=== PATIENT | female | born 1955 | race Caucasian/White ===

== ENCOUNTER → 2022-02-09 | Outpatient (CLI) | payer MEDICARE ==
--- NOTE | 2022-02-09 10:05 | Diagnostic Imaging Report ---
INDICATION: Right foot pain. AP, oblique and lateral views of the right foot are obtained. FINDINGS: No acute fracture or malalignment is identified. There is advanced narrowing of the 1st metatarsal-phalangeal joint with subchondral sclerosis and cyst formation. There is also mild juxta-articular erosion or subchondral cyst formation along the distal aspect of 5th metatarsal. Mild degenerative findings are also present at the medial navicular cuneiform joint. There is no lytic or sclerotic lesion. IMPRESSION: Degenerative-type findings are seen throughout the midfoot and forefoot. Findings are most pronounced at the 1st metatarsophalangeal joint. Dictated by: Dictated on workstation # [id number]
--- NOTE | 2022-02-09 13:09 | Diagnostic Imaging Report ---
INDICATION: No known injury. Shoulder pain EXAMINATION: Left shoulder 02/09/2022 FINDINGS: 3 views of the shoulder. There is narrowing and spurring at the acromioclavicular joint. Adjacent loose body suspected. These appear well corticated. There are no acute fractures or dislocations. The visualized lungs clear. IMPRESSION: 1. Chronic findings with no acute osseous abnormality. Dictated by: Dictated on workstation # [id number]
== END ==
LOC: ORTHO 09:43
PROVIDERS: ATTEND Orthopaedic Surgery
DX: M19.071 Primary osteoarthritis, right ankle and foot (principal); M25.512 Pain in left shoulder
CPT/HCPCS: 20610; 73030; 73630; G0463

== ENCOUNTER 2022-08-19 05:34 | Outpatient (CLI) | payer MEDICARE ==
[~2022-08-19] VITALS: Ht 154.9 cm; Wt 63.3 kg
[2022-08-19] MEDS ORDERED: PANT40TA52 PO (13:58)
[2022-08-19] MEDS ORDERED: ESTR-19 PO (13:58)
[2022-08-19] MEDS ORDERED: CHLO25TA22 PO (13:58)
[2022-08-19] MEDS ORDERED: POTA-177 PO (13:58)
[2022-08-19] MEDS ORDERED: ATEN50TA PO (13:58)
[2022-08-19] MEDS ORDERED: ESTR42.511 VG (13:58)
[2022-08-19] MEDS ORDERED: MONT-40 PO (13:58)
== END 2022-08-19 14:05 | disposition home or self-care (01) ==
LOC: PREOP 05:34
PROVIDERS: ATTEND Obstetrics & Gynecology
DX: Z01.818 Encounter for other preprocedural examination (principal)

== ENCOUNTER 2022-08-27 09:50 | Day surgery (SDC) | payer MEDICARE ==
[2022-08-27] VITALS (12 sets, daily range): BP systolic 113–149; BP diastolic 54–75
[~2022-08-27] VITALS: Ht 154.9 cm; Wt 63.3 kg
[~2022-08-27 09:50] MED LIST: ATEN50TA PO; CHLO25TA22 PO; ESTR-19 PO; ESTR42.511 VG; MONT-40 PO; PANT40TA52 PO; POTA-177 PO
--- NOTE | 2022-08-27 09:57 | Progress Note-Pre Operative ---
Pre-Operative Progress Note Date of Available H&P: Aug 27, 2022 Date H&P Reviewed: Aug 27, 2022 Time H&P Reviewed: 10:00 History & Physical: H&P Reviewed, No changes noted Pre-Operative Diagnosis: Vaginal prolapse and stress urinary incontinence WILLIAMS SEE MD Aug 27, 2022 09:57
--- NOTE | 2022-08-27 09:58 | Progress Note-Post Operative ---
Post-Operative Progess Note Surgeon (s)/Hospitality Host (s) Surgeon WILLIAMS SEE MD Hospitality Host: Heather Pre-Operative Diagnosis Vaginal prolapse and stress urinary incontinence Post-Operative Diagnosis Same Procedure & Operative Findings Date of Procedure 08/27/22 Procedure Performed/Findings Anterior and posterior vaginal repairs with enterocele repair Dr. Salcido did a pubovaginal sling and cystoscopy Anesthesia Type General Estimated Blood Loss Estimated blood loss (mL): min Specimens/Packing Specimens Removed None Packing: Kerlix gauze in the vagina WILLIAMS SEE MD Aug 27, 2022 09:58
[2022-08-27] MEDS ORDERED: ONDANSETRON 4 MG/2 ML (SDV) Z0FRAN IVP PRN ×2 (10:00→13:00)
[2022-08-27] MEDS ORDERED: ESTROGENS CONJ INJECTION 25 MG in WATER (STERILE) FOR INJECTION 5 ML IV ONE (10:00)
[2022-08-27] MEDS ORDERED: BENZOCAINE/MENTHOL (DERMOPLAST) 56 ML CAN TP PRN (10:00)
[2022-08-27] MEDS ORDERED: MEPERIDINE (DEMEROL) INJ 50 MG/ML IVP PRN (10:00)
[2022-08-27] MEDS ORDERED: PROMETHAZINE INJ 25 MG/ML (PHENERGAN) AMP IM PRN (10:00)
[2022-08-27] MEDS ORDERED: IBUP-1773 PO (10:02)
[2022-08-27] MEDS ORDERED: OXYC-199 PO (10:02)
[2022-08-27] MEDS ORDERED: DOCU-143 PO (10:02)
--- NOTE | 2022-08-27 10:12 | Discharge Inst-Surgical ---
Discharge Inst-Surgical Depart Medication/Instructions New, Converted or Re-Newed RX: Transmitted to Pharmacy Consults/Follow Up Patient Instructions: As directed Orders & Referrals Follow Up Appt: Call to make follow up appt. for patient in 4 weeks. Activity: Rest for 24 hours, than as tolerated. Prescriptions have been transmitted electronically to patient's pharmacy for Percocet Motrin and Colace Patient is to continue all of her home medications Diet: As tolerated- shower or tub bathe as desired. No driving for 24 hours, no alcoholic beverages for 24 hours, and nothing per vagina (no tampons, douching, or intercourse) for 4 weeks. Patient to return to the clinic as soon as possible for: Temperature greater than 101F, Severe Pain, Foul discharge from incision or vagina, Excessive Bleeding (more than a period). Activity Activity as Tolerated: No Diet Discharge Diet: No Restrictions WILLIAMS SEE MD Aug 27, 2022 10:12
[2022-08-27] MEDS ORDERED: ceFAZolin INJECTION 1,000 MG ONE (10:22)
[2022-08-27] MEDS ORDERED: NS (IVPB) 50 ML ONE (10:23)
[2022-08-27] MEDS ORDERED: LACTATED RINGERS 1,000 ML IV PRN (10:30)
[2022-08-27] MEDS ORDERED: ceFAZolin INJECTION 1,000 MG in NS (IVPB) 50 ML IV ONE (10:30)
[2022-08-27 10:31] LABS: BASOPHILS # (AUTO) 0.1 10^3/uL (0.0-0.1); BASOPHILS % (AUTO) 1 % (0-10); EOSINOPHILS # (AUTO) 0.1 10^3/uL (0.0-0.3); EOSINOPHILS % (AUTO) 1 % (0-10); HEMATOCRIT 41 % (35-52); HEMOGLOBIN 14.6 g/dL (11.5-16.0); LYMPHOCYTES # (AUTO) 1.2 10^3/uL (1.0-4.0); LYMPHOCYTES % (AUTO) 15 % (12-44); MEAN CORPUSCULAR HEMOGLOBIN 32 pg (25-34); MEAN CORPUSCULAR HGB CONC 36 g/dL (32-36); MEAN CORPUSCULAR VOLUME 90 fL (80-99); MEAN PLATELET VOLUME 8.9 fL (9.0-12.2); MONOCYTES # (AUTO) 0.9 10^3/uL (0.0-1.0); MONOCYTES % (AUTO) 11 % (0-12); NEUTROPHILS # (AUTO) 5.5 10^3/uL (1.8-7.8); NEUTROPHILS % (AUTO) 72 % (42-75); PLATELET COUNT 391 10^3/uL (130-400); WHITE BLOOD COUNT 7.7 10^3/uL (4.3-11.0)
[2022-08-27] MEDS ORDERED: fentaNYL INJ 100 MCG/2 ML AMP ONE (10:31)
[2022-08-27] MEDS ORDERED: MIDAZOLAM 2 MG/2 ML (VERSED) VIAL ONE (10:31)
[2022-08-27] MEDS ORDERED: ESTRADIOL VAGINAL CREAM 42.5 GM (ESTRACE) VG ONE (11:21)
[2022-08-27] MEDS ORDERED: proPOfol 200 MG/20 ML (DIPRIVAN) VIAL IV ONE (12:02)
[2022-08-27] MEDS ORDERED: LIDOCAINE PF 2% 5 ML (XYLOCAINE) VIAL ONE (12:03)
[2022-08-27] MEDS ORDERED: ONDANSETRON 4 MG/2 ML (SDV) Z0FRAN ONE (12:03)
--- NOTE | 2022-08-27 12:25 | Progress Note-Post Operative ---
Post-Operative Progess Note Surgeon (s)/Linen Sorter (s) Surgeon FREDRICK EMERSON MD Linen Sorter: MD ESA Pre-Operative Diagnosis Vaginal prolapse and stress urinary incontinence Post-Operative Diagnosis SAME Procedure & Operative Findings Date of Procedure 08/27/22 Procedure Performed/Findings PVS AND CYSTO Anesthesia Type GENERAL Estimated Blood Loss Estimated blood loss (mL): NEGLIGIBLE Specimens/Packing Specimens Removed NONE Packing: Kerlix gauze in the vagina FREDRICK EMERSON MD Aug 27, 2022 12:25
[2022-08-27] MEDS ORDERED: WATER (STERILE) FOR INJECTION 10 ML ONE (12:47)
[2022-08-27] MEDS ORDERED: SEVOFLURANE (ULTANE) 15 ML INHAL SOLN ONE (12:47)
[2022-08-27] MEDS ORDERED: ESTROGENS CONJ INJECTION 5 ML ONE (12:47)
--- NOTE | 2022-08-27 12:57 | Anesthesia-General Post-Op ---
General Patient Condition Mental Status/LOC: Same as Preop Cardiovascular: Satisfactory Nausea/Vomiting: Absent Respiratory: Satisfactory Pain: Controlled Complications: Absent Post Op Complications Complications None Follow Up Care/Instructions Patient Instructions None needed. Anesthesia/Patient Condition Patient Condition Patient is doing well, no complaints, stable vital signs, no apparent adverse anesthesia problems. No complications reported per nursing. HETAL MARTINEZ CRNA Aug 27, 2022 12:57
[2022-08-27] MEDS ORDERED: fentaNYL INJ 100 MCG/2 ML AMP IVP ONE (13:00)
[2022-08-27] MEDS ORDERED: PROMETHAZINE INJ 25 MG/ML (PHENERGAN) AMP IVP ONE (13:00)
[2022-08-27] MEDS ORDERED: HYDROmorphone 2 MG/ML VIAL (DILAUDID) IV ONE (13:00)
[2022-08-27] MEDS ORDERED: morphine INJ 10 MG/ML 1ML (SYR OR VIAL) IVP ONE (13:00)
[2022-08-27] MEDS ORDERED: HYDROmorphone 2 MG/ML VIAL (DILAUDID) ONE (13:13)
[2022-08-27] MEDS: D5 LR IV SOLUTION 1,000 ML IV SCH ×2 (14:48→21:33)
[2022-08-27] MEDS: KETOROLAC 15 MG/ML VIAL IV SCH ×2 (14:48→21:22)
[2022-08-27] MEDS ORDERED: PATIENT MAY USE OWN MEDS, ALL MC SCH (15:30)
[2022-08-27] MEDS: oxyCODONE/APAP 5/325MG (PERCOCET 5) TABLET PO PRN ×2 (18:03→20:06)
--- NOTE | 2022-08-27 19:52 | OPERATIVE REPORT ---
DATE OF SERVICE: 08/27/2022 PREOPERATIVE DIAGNOSIS: On my part, stress urinary incontinence. POSTOPERATIVE DIAGNOSIS: On my part, stress urinary incontinence. OPERATION PERFORMED: Pubovaginal sling and cystoscopy. SURGEON: Fredrick Emerson MD. SHERIFF SERGEANT: Pasquale Mtz MD COMPLICATIONS: None. DESCRIPTION OF PROCEDURE: After Dr. Mtz performed the first part of his surgery that he will dictate, I went ahead and passed the Desara II sling instrument on both sides using the described technique. The sling was sitting nicely under the mid urethra with no twisting or tension with a curved hemostat passed easily between it and the underlying tissue. I removed the Aguilar catheter, which I inserted before passing the sling to perform a cystoscopy that showed normal bladder, no foreign body and intact ureteric orifices and urethra with presence of the sling under the mid urethra. I left the bladder half filled. I removed the cystoscope, performed a manual Valsalva maneuver that was negative. I reinserted the Aguilar catheter draining clear fluid. Estimated blood loss was negligible and Dr. Mtz proceeded with rest of his surgery that he will dictate. Job ID: [id number] DocumentID: [id number] Dictated Date: 08/27/2022 12:27:24 Supervisor Nut Processing Date: 08/27/2022 19:51:48 Dictated By: FREDRICK EMERSON MD
[2022-08-27] MEDS: KCL 10 MEQ TAB (MICRO K) PO SCH (20:06)
[2022-08-27] MEDS ORDERED: MEPERIDINE (DEMEROL) INJ 50 MG/ML IM PRN (22:00)
--- NOTE | 2022-08-27 23:07 | OPERATIVE REPORT ---
DATE OF SERVICE: 08/27/2022 PREOPERATIVE DIAGNOSIS: Vaginal prolapse and stress urinary incontinence. POSTOPERATIVE DIAGNOSIS: Vaginal prolapse and stress urinary incontinence. OPERATIVE PROCEDURE: Anterior and posterior vaginal repairs with enterocele repair as well as Dr. Anderson doing a pubovaginal sling and cystoscopy. OPERATIVE DESCRIPTION: With the patient in the supine position under satisfactory general anesthesia, she was repositioned in dorsal lithotomy position in the Kyle stirrups and prepped and draped in the usual fashion for vaginal surgery. Weighted speculum placed in posterior fornix of vagina. The anterior vaginal wall was grasped with two Donny clamps. Midline vaginal wall was opened with Metzenbaum scissors. That opening was continued to approximately a centimeter to 1.5 cm from the urethral meatus and up to the apex of the vagina. The bladder wall was carefully dissected off the muscularis of the vagina back to the pubic rami bilaterally. At this point, Dr. Anderson assumed care of the patient for the pubovaginal sling and cystoscopy. I remained to assist. On completion of Dr. Anderson's portion of the procedure, he placed a Aguilar catheter and left it to dependent drainage. I resumed care of the patient. Redundant anterior vaginal muscularis mucosa was removed sharply. The vaginal wall was closed with running locked suture of 3-0 Vicryl Rapide. Good support was evident. Good reapproximation, good hemostasis was achieved with the closure. Posterior repair was affected by placing Donny clamps on the perineum and hymenal ring at 5 and 7 o'clock position and inverted triangle skin was removed from the perineal body and an upright triangle from the posterior vaginal floor. The rectovaginal space was entered sharply and dissected bluntly to the apex of the vagina with a Manuel placed in position. The apex of the vagina was explored. There was a small enterocele that was obliterated with a pursestring suture of 2-0 Vicryl. With that done, the rectovaginal space was obliterated with additional sutures of 2-0 Vicryl. The perineal body was restored with additional sutures of 2-0 Vicryl and then the redundant posterior vaginal wall muscularis mucosa was removed sharply and then the vaginal wall was closed with running locked suture also of 3-0 Vicryl Rapide, that closure was continued past the hymenal ring down on the perineal body then back up subcutaneous to the hymenal ring where it was tied. The vaginal incisions were examined for hemostasis, which was complete. Good support was evident anteriorly and posteriorly. The apex of vagina was well supported de rosamaria. The vagina was now filled with Estrace vaginal cream and a pack of Kerlix gauze was placed. Digital rectal exam demonstrated one suture barely through the mucosa in the anterior wall of the rectum. Metzenbaum scissors were passed transrectally until the suture was located and then that suture was clipped allowing the retract into the tissue. Now with no sutures into or through the rectal mucosa, no stricture or stenosis of the rectum and sponge and needle counts correct, hemostasis assured. BLOOD LOSS: Minimal. The procedure was complete and terminated. The patient was uneventfully awakened from her general anesthesia and transferred to recovery room in stable condition. Job ID: [id number] DocumentID: [id number] Dictated Date: 08/27/2022 13:03:46 Cnc Maintenance Mechanic Date: 08/27/2022 23:06:56 Dictated By: WILLIAMS SEE MD
[2022-08-28 01:30] VITALS: BP 132/63
[2022-08-28] MEDS: KETOROLAC 15 MG/ML VIAL IV SCH (03:24)
[2022-08-28 05:36] VITALS: BP 140/64
[2022-08-28] MEDS ORDERED: PANTOPRAZOLE 40 MG (PROTONIX) TAB PO SCH (09:00)
[2022-08-28] MEDS ORDERED: [UNRECOGNIZED DRUG - REMARK] PO SCH (09:00)
[2022-08-28] MEDS ORDERED: DOCUSATE SODIUM 100 MG (COLACE) CAP PO SCH (09:00)
[2022-08-28] MEDS ORDERED: MONTELUKAST 10 MG (SINGULAIR) TAB PO SCH (09:00)
[2022-08-28] MEDS ORDERED: [UNRECOGNIZED DRUG - REMARK] PO SCH (09:00)
[2022-08-28] MEDS ORDERED: ATENOLOL 50 MG (TENORMIN) TAB PO SCH (09:00)
[2022-08-28 09:03] VITALS: BP 142/62
[2022-08-28] MEDS: KCL 10 MEQ TAB (MICRO K) PO SCH (09:11)
--- NOTE | 2022-08-28 09:35 | Progress Note ---
Standard Progress Note Progress Notes/Assess & Plan Date Seen by a Provider: Aug 28, 2022 Time Seen by a Provider: 09:33 Progress/Assessment & Plan This patient is without complaint. She is ambulating, voiding, tolerating oral intake well and has good pain control. She feels ready for discharge home. Vital Signs Date Time Temp Pulse Resp B/P (MAP) Pulse Ox O2 Delivery O2 Flow Rate FiO2 08/28/22 05:36 36.8 68 18 140/64 (89) 97 Room Air 08/28/22 01:30 36.7 69 18 132/63 (86) 98 Room Air 08/27/22 21:25 36.3 63 18 128/61 (83) 96 Room Air 08/27/22 17:30 36.7 62 18 113/58 (76) 97 Room Air 08/27/22 14:45 36.6 54 16 138/63 (88) 96 Room Air 08/27/22 14:05 36.4 55 16 125/58 (80) 94 Room Air 08/27/22 13:55 Room Air 08/27/22 13:50 36.3 20 125/54 (77) 94 Room Air 08/27/22 13:45 Room Air 08/27/22 13:40 20 125/54 (77) 99 OxyMask 3.00 08/27/22 13:30 20 128/71 (90) 98 OxyMask 4.00 08/27/22 13:30 OxyMask 3.00 08/27/22 13:20 20 141/65 (90) 99 OxyMask 5.00 08/27/22 13:15 OxyMask 3.00 08/27/22 13:10 20 147/70 (95) 100 OxyMask 5.00 08/27/22 13:00 20 128/71 (90) 100 OxyMask 5.00 08/27/22 13:00 OxyMask 5.00 08/27/22 12:52 OxyMask 5.00 08/27/22 12:52 36.3 20 149/75 (99) 100 OxyMask 5.00 08/27/22 10:00 36.3 57 18 118/67 (84) 97 Room Air I & O 08/28/22 07:00 Intake Total 5110 ml Output Total 1325 ml Balance 3785 ml Vital signs are stable. Patient is afebrile. The abdomen is benign Extremities show no clubbing or cyanosis. There is no Homans' sign. Pelvic exam was deferred Assessment and plan Postoperative day #1 status post AMP repairs with enterocele repair as well as a pubovaginal sling and cystoscopy that was done by Dr. Salcido. Patient is recovering nicely she is voiding well plan is for discharge home with follow-up in clinic Final Diagnosis Vaginal prolapse and stress urinary, WILLIAMS SEE MD Aug 28, 2022 09:35
[2022-08-28] MEDS ORDERED: IBUPROFEN 800 MG (MOTRIN) TAB PO SCH (10:00)
== END 2022-08-28 10:05 | disposition home or self-care (01) ==
LOC: SDC 09:50 → WS 13:55 → SDC 08-28 10:05
PROVIDERS: ATTEND Obstetrics & Gynecology
DX: N81.10 Cystocele, unspecified (principal); N39.3 Stress incontinence (female) (male); K21.9 Gastro-esophageal reflux disease without esophagitis; N95.2 Postmenopausal atrophic vaginitis; Z79.899 Other long term (current) drug therapy
CPT/HCPCS: 57265; 57288; 85025; 87081; 94664; C1771; 36415